=== PATIENT | female | born 1985 | race Caucasian/White ===

== ENCOUNTER → 2016-09-06 | Outpatient (CLI) | payer BC ==
[~2016-09-06] MED LIST: OMEP20TA PO
--- NOTE | 2016-09-06 16:38 | DIAGNOSTIC IMAGING REPORT ---
LUMBAR SPINE 5 VIEWS HISTORY: LOW BACK PAIN COMPARISON: None. FINDINGS: There is no fracture. No subluxation. Disc spaces are preserved. IMPRESSION: Unremarkable lumbar spine by conventional radiographic technique. Electronically signed by: Bhavik Díaz M.D. 09/06/2016 4:36 PM Dictated Date/Time: 09/06/2016 4:33 PM
== END | disposition home or self-care (01) ==
LOC: C.RDSM 08:00
PROVIDERS: ATTEND Family Medicine
DX: M54.9 Dorsalgia, unspecified (principal)

== ENCOUNTER → 2017-02-22 | Outpatient (CLI) | payer BC ==
--- NOTE | 2017-02-22 09:20 | DIAGNOSTIC IMAGING REPORT ---
RIGHT KNEE 4 VIEWS CLINICAL HISTORY: Right knee pain. FINDINGS: AP, lateral, tunnel, and sunrise views of the right knee are obtained. No prior studies are available for comparison at the time of dictation. The skeletal structures are well mineralized. No fracture is seen. The joint spaces of the knee are well-maintained. No evidence of osteochondral defect is seen on the tunnel image. There is no large joint effusion. The overlying soft tissues are within normal limits. IMPRESSION: No acute bony abnormality is seen in the right knee. Electronically signed by: Regulo Heath M.D. 02/22/2017 9:19 AM Dictated Date/Time: 02/22/2017 9:18 AM
== END | disposition home or self-care (01) ==
LOC: C.RDSM 12:26
PROVIDERS: ATTEND Family Medicine
DX: M25.561 Pain in right knee (principal)